=== PATIENT | male | born 1940 | race Caucasian/White ===

== ENCOUNTER 2017-01-16 06:28 | Day surgery (SDC) | payer MEDICARE, OTHER ==
[2017-01-16] VITALS (7 sets, daily range): BP systolic 108–150; BP diastolic 53–95
[~2017-01-16] VITALS: Ht 180.3 cm; Wt 87.7 kg
[~2017-01-16 06:28] MED LIST: ATOR40TA2 PO; CALC-250 PO; LACTATED RINGERS 1,000 ML IV SCH; LEVO75TA4 PO; OMEP40CA36 PO; SODIUM CHLORIDE FLUSH 3 ML SYR IV PRN
--- OUTSIDE RECORDS SUMMARY | 2017-01-16 06:32 | XMS REPORT | Continuity of Care Document ---
Author Author [facility] Organization [facility] Address Unknown Phone Unavailable Care Team Providers Care Casino Assistant Manager Name Role Phone Oskar Crain MD PP [phone] Insurance Providers Payer Name Policy Number Subscriber Name Relationship Pool [facility] [id number] Malachi Constantino 20 Self / Same As Patient Medicare A And B [id number] Malachi Constantino 20 Self / Same As Patient Advance Directives Directive Response Recorded Date Advanced Directives No 09/29/13 8:46am Problems No Known Problems or Medical conditions. Allergies, Adverse Reactions, Alerts Allergen Type Severity Reaction Last Updated iodine Allergy 09/26/13 Medications Medication Dose Units Route Sig Qty Days Atorvastatin Calcium (Lipitor) 40 Mg PO HS Cholecalciferol (Vitamin D3) (Vitamin D3) 5000 Unit PO DAILY 2 Omeprazole 40 Mg PO DAILY Levothyroxine Sodium 75 Mcg PO DAILY Response Recorded Date/Time Status not known Unknown Results No Known Relevant Diagnostic Tests, Laboratory Data and/or Discharge Summary. Procedures Procedure Code Date SPEECH/HEARING EVALUATION 11355 05/21/13 G9171 05/21/13 G9172 05/21/13
[2017-01-16] MEDS ORDERED: LIDOCAINE 4% TOPICAL 4.5 ML SYR ONE (06:38)
[2017-01-16] MEDS ORDERED: SIMETHICONE 40 MG/0.6 ML (MYLICON DROPS) ORAL SYRINGE ONE (06:38)
[2017-01-16] MEDS ORDERED: MINERAL OIL 25 ML BTL TOP ONE (06:42)
[2017-01-16] MEDS ORDERED: ALCL15CR TP (06:50)
[2017-01-16] MEDS ORDERED: ALLO100T PO (06:50)
[2017-01-16] MEDS ORDERED: MOME0.5P MC (06:50)
[2017-01-16] MEDS ORDERED: CLON0.5T3 PO (06:50)
[2017-01-16] MEDS ORDERED: PROPOFOL 20 ML IV ONE (06:51)
[2017-01-16] MEDS ORDERED: MIDAZOLAM 2 MG/2 ML (VERSED) VIAL ONE (06:52)
[2017-01-16] MEDS ORDERED: REMIFENTANIL 1 MG (ULTIVA) VIAL IV ONE (06:52)
[2017-01-16] MEDS ORDERED: LIDOCAINE 2% BOLUS 100 MG/5 ML (XYLOCAINE) SYRINGE ONE (07:10)
--- NOTE | 2017-01-17 09:57 | OPERATIVE REPORT ---
DATE OF OPERATION: 01/16/2017 PRE-OPERATIVE DIAGNOSIS: History of Fallon's esophagus. POST-OPERATIVE DIAGNOSIS: 1. Mild antral gastritis. 2. 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 OPERATIVE PROCEDURE: Esophagogastroduodenoscopy with biopsies and cytology brushings. SURGEON: Derek Pearson MD ANESTHESIA: IV conscious sedation, Monitored Anesthesia Services plus topical oropharyngeal anesthetic. POSITION: Semi-recumbent, with slight left rotation ESTIMATED BLOOD LOSS: Minimal FINDINGS: Mild chronic antral gastritis. Normal duodenum and stomach otherwise. Chronic distal esophagitis with possible tongue of Fallon's esophagus estimated to be 1 cm in length and chronic in appearance. Remainder of esophagus appeared normal. INDICATIONS: This patient has history of Fallon's esophagus and has undergone prior surveillance endoscopes. None of these those showed any evidence of dysplasia. The patient returns at this time for scheduled surveillance endoscopy. Following satisfactory induction of analgesia a bite block was inserted per os. The gastroscope was inserted through the bite block and advanced into the oropharynx. The pharynx, vocal cords and larynx appeared normal. The patient was allowed to swallow the scope which was advanced through the esophagus, stomach and duodenum to the second portion, including retroflexed view of the gastric fundus. Knotter Hand photographs were obtained. The above findings were noted. Using cold biopsy forceps multiple biopsies were obtained of the gastric antrum and submitted to pathology. Good hemostasis was noted at the biopsy sites. Next cold biopsy forceps were utilized to obtain multiple circumferential multilevel biopsies of the distal esophagus including the above noted area of mucosal tongue. These were submitted as one specimen to pathology. Following this cytology brush was utilized to obtain multiple brushings of the esophagus circumferentially. This was also submitted to pathology. Good hemostasis was noted at the sampling site. Excess CO2 was evacuated and the scope was removed. The patient tolerated the procedure well and transferred to recovery in stable condition. RECOMMENDATION: Recommendations will depend upon findings of biopsies and cytology.
== END 2017-01-16 10:53 | disposition home or self-care (01) ==
LOC: ASC 06:28
PROVIDERS: ATTEND Surgery
DX: K22.70 Barrett's esophagus without dysplasia (principal); K21.0 Gastro-esophageal reflux disease with esophagitis; K29.30 Chronic superficial gastritis without bleeding; E03.9 Hypothyroidism, unspecified
CPT/HCPCS: 43239; 88305; 88312; A9270; J2250; J7120